=== PATIENT | male | born 1980 | race African-American/Black ===

== ENCOUNTER 2019-09-13 15:10 | Emergency (ER) | payer BC, OTHER ==
[2019-09-13] MEDS ORDERED: Morphine 4 MG/ML VIAL ONE (15:20)
[2019-09-13] MEDS ORDERED: Ketorolac Tromethamine 30 MG/ML VIAL ONE (15:20)
--- NOTE | 2019-09-13 15:57 | RAD ---
Exam:2 views left femur HISTORY: Fall and pain. COMPARISON: None FINDINGS: No fracture, cortical irregularity or periosteal reaction. IMPRESSION: No fracture.
--- NOTE | 2019-09-13 15:57 | RAD ---
Exam:3 views left knee HISTORY: Pain. Fall. COMPARISON: None FINDINGS: Preserved joint spaces. No joint effusion. No fracture or malalignment. IMPRESSION: No fracture or malalignment.
== END 2019-09-13 17:15 | disposition home or self-care (01) ==
LOC: ERS 15:10
DX: M25.562 Pain in left knee (principal); I10 Essential (primary) hypertension; E11.9 Type 2 diabetes mellitus without complications; F41.9 Anxiety disorder, unspecified; F17.290 Nicotine dependence, other tobacco product, uncomplicated; Z79.899 Other long term (current) drug therapy; Z79.84 Long term (current) use of oral hypoglycemic drugs; Y04.8XXA Assault by other bodily force, initial encounter
CPT/HCPCS: 96374; 96375; J1885; J2270